=== PATIENT | male | born 1990 | race Hispanic/Latino ===

== ENCOUNTER 2017-08-05 13:55 | Observation (INO) | payer BC ==
[2017-08-05 13:55] VITALS: BMI 23.0
--- NOTE | 2017-08-05 14:08 | ED PDOC ---
Arrival/HPI - General Time Seen by Provider: 08/05/17 14:08 Historian: Patient - History of Present Illness Narrative History of Present Illness (Text): 08/05/17 14:08 27 y/o male, no significant pmh, nkda, c/o periumbilical pain with nausea and vomiting started this morning around 10am. Sudden onset, no flank pain, severity 7/10, periumbilical to the RLQ region, associated with nausea and couple episodes of vomiting, no testicular pain, no night sweat, no rash, no urinary symptoms, no other medical or psychological complaitns. Past Medical History - Provider Review Nursing Documentation Reviewed: Yes - Infectious Disease Hx of Infectious Diseases: None - Tetanus Immunization Tetanus Immunization: Unknown - Psychiatric Hx Substance Use: No Family/Social History - Physician Review Nursing Documentation Reviewed: Yes Family/Social History: Unknown Family HX Smoking Status: Never Smoked Hx Alcohol Use: Yes Hx Substance Use: No Allergies/Home Meds Allergies/Adverse Reactions: Allergies Penicillins Allergy (Verified 08/05/17 14:15) ANAPHYLAXIS Review of Systems - Review of Systems Constitutional: absent: Fatigue, Fevers Eyes: absent: Vision Changes ENT: absent: Hearing Changes Respiratory: absent: SOB, Cough Cardiovascular: absent: Chest Pain Gastrointestinal: Abdominal Pain, Nausea, Vomiting. absent: Diarrhea Skin: absent: Rash, Pruritis Neurological: absent: Headache, Dizziness Psychiatric: absent: Anxiety, Depression Physical Exam Vital Signs Reviewed: Yes Vital Signs Temp Pulse Resp BP Pulse Ox 08/05/17 16:48 98.4 F 71 18 134/84 100 08/05/17 14:16 98.2 F 66 18 137/86 99 Temperature: Afebrile Blood Pressure: Normal Pulse: Regular Respiratory Rate: Normal Appearance: Positive for: Well-Appearing, Non-Toxic, Comfortable Pain Distress: Moderate Mental Status: Positive for: Alert and Oriented X 3 - Systems Exam Head: Present: Atraumatic, Normocephalic Pupils: Present: PERRL Extroacular Muscles: Present: EOMI Conjunctiva: Present: Normal Mouth: Present: Moist Mucous Membranes Neck: Present: Normal Range of Motion Respiratory/Chest: Present: Clear to Auscultation, Good Air Exchange. No: Respiratory Distress, Accessory Muscle Use Cardiovascular: Present: Regular Rate and Rhythm, Normal S1, S2. No: Murmurs Abdomen: Present: Tenderness (+periumbilical tenderness). No: Distention, Peritoneal Signs, Rebound, Guarding Back: Present: Normal Inspection Upper Extremity: Present: Normal Inspection. No: Cyanosis, Edema Lower Extremity: Present: Normal Inspection. No: Edema Neurological: Present: GCS=15, CN II-XII Intact, Speech Normal Skin: Present: Warm, Dry, Normal Color. No: Rashes Psychiatric: Present: Alert, Oriented x 3, Normal Insight, Normal Concentration Medical Decision Making ED Course and Treatment: 08/05/17 14:28 -labs/ua -CT abdomen and pelvis -IVF/zofran/morphine 4mg IV -Observe and reassess 08/05/17 17:24 -CT abdomen and pelvis show Findings consistent with acute appendicitis. Splenomegaly findings discussed with emergency room DAYNA Hill at approximately 5: 10 p.m. with written down and read back verification. -Labs show no acute findings except wbc 13.9 -UA no UTI -Surgical attending DR. Ramirez and cardiovascular surgical tech luis daniel. -IV cipro and flagyl ordered 08/05/17 17:25 -I spoke to the cardiovascular surgical tech Dr. Murphy, agreed on the cipro and flagyl, will come to evaluate the patient. -I discussed with DR. Sloan and he agreed on the treatment and admission. 08/05/17 17:48 -Chest xray show no active disease -Fabric Normalizer DR. Jeffrey Gaona is here, will reach out to Dr. Crespo as the patient's family request him to be the surgeon and I am unable to get a call back from Dr. Crespo. 08/05/17 18:15 -Dr. Jeffrey Gaona, called and spoke to the surgical attending Dr. Corey which Dr. Crespo agreed to admit to his service. - Lab Interpretations Lab Results: 08/05/17 14:50 08/05/17 14:50 Lab Results 08/05/17 16:43: Urine Color Yellow, Urine Appearance Clear, Urine pH 7.5, Ur Specific [place] 1.010, Urine Protein Negative, Urine Glucose (UA) Negative, Urine Ketones 15 H, Urine Blood Negative, Urine Nitrate Negative, Urine Bilirubin Negative, Urine Urobilinogen 0.2, Ur Leukocyte Esterase Negative 08/05/17 14:50: WBC 13.9 H, RBC 5.64, Hgb 16.3, Hct 45.6, MCV 80.9, MCH 28.9, MCHC 35.7, RDW 12.4, Plt Count 208, MPV 11.3 H, Gran % 86.4 H, Lymph % (Auto) 8.9 L, [place] % (Auto) 4.4, Eos % (Auto) 0.2 L, Baso % (Auto) 0.1, Gran # 12.04 H , Lymph # (Auto) 1.2, [place] # (Auto) 0.6, Eos # (Auto) 0.0, Baso # (Auto) 0.01 08/05/17 14:50: Sodium 142, Potassium 4.3, Chloride 102, Carbon Dioxide 23, Anion Gap 21 H, BUN 13, Creatinine 0.9, Est GFR ( Amer) > 60, Est GFR ( Non-Af Amer) > 60, Random Glucose 102, Calcium 10.1, Magnesium 1.9, Total Bilirubin 0.8, AST 26, ALT 32, Alkaline Phosphatase 73, Total Protein 8.5 H, Albumin 5.1 H, Globulin 3.4, Albumin/Globulin Ratio 1.5, Lipase 54 I have reviewed the lab results: Yes - RAD Interpretation Radiology Orders: 08/05/17 14:23 ABD & PELVIS IV CONTRAST ONLY [CT] Stat 08/05/17 17:11 CHEST PORTABLE [RAD] Stat Chest xray: HISTORY: medical clearance COMPARISON: No prior. FINDINGS: LUNGS: No active pulmonary disease. PLEURA: No significant pleural effusion identified, no pneumothorax apparent. CARDIOVASCULAR: Normal. OSSEOUS STRUCTURES: No significant abnormalities. VISUALIZED UPPER ABDOMEN: Normal. OTHER FINDINGS: None. IMPRESSION: No active disease. CT abdomen and pelvis: PROCEDURE: CT abdomen pelvis HISTORY: Periumbilical pain/nausea/vomiting started today COMPARISON: None. TECHNIQUE: Contiguous axial images of the abdomen and pelvis performed following intravenous injection of approximately 96 cc Omnipaque 350 contrast material. Reformats generated. Radiation dose: Total exam DLP = 626.33 mGy-cm. This CT exam was performed using one or more of the following dose reduction techniques: Automated exposure control, adjustment of the mA and/or kV according to patient size, and/or use of iterative reconstruction technique. FINDINGS: LOWER THORAX: Unremarkable. LIVER: Unremarkable. No gross lesion or ductal dilatation. GALLBLADDER AND BILE DUCTS: Unremarkable. PANCREAS: Unremarkable. No mass. No ductal dilatation. SPLEEN: Spleen is enlarged measuring nearly 14 cm in AP dimension. ADRENALS: No adrenal lesions. KIDNEYS AND URETERS: Unremarkable. No stone or hydronephrosis. BLADDER: Grossly unremarkable. REPRODUCTIVE: Unremarkable. APPENDIX: The appendix is dilated measuring nearly 11 mm with wall thickening. Findings are consistent with acute appendicitis. BOWEL: Evaluation of the bowel is limited due to the lack of oral contrast Stomach is collapsed. Visualized loops of small bowel exhibit normal contour and caliber. No evidence of acute mechanical small bowel obstruction. . There is fecalized content within the distal small bowel suggesting stasis. Stool and air seen throughout the cecum PERITONEUM: Unremarkable. No fluid collection. No free air. Tiny fat containing umbilical hernia. LYMPH NODES: Unremarkable. No enlarged lymph nodes. VASCULATURE: Unremarkable. No aortic aneurysm. BONES: No fracture or destructive lesion. OTHER FINDINGS: None. IMPRESSION: Findings consistent with acute appendicitis Splenomegaly findings discussed with emergency room DAYNA Hill at approximately 5: 10 p.m. with written down and read back verification. Case Assistant: Radiologist - Medication Orders Current Medication Orders: Hydromorphone HCl (Dilaudid) 0.5 mg IVP Q3H PRN PRN Reason: Pain, severe (8-10) Ciprofloxacin (Cipro 400mg/200ml Dsw) 400 mg in 200 mls @ 133.3 mls/hr IVPB STAT STA PRN Reason: Protocol Stop: 08/05/17 18:53 Ciprofloxacin (Cipro 400mg/200ml Dsw) 400 mg in 200 mls @ 133.3 mls/hr IVPB Q12H AURELIO PRN Reason: Protocol Metronidazole (Flagyl) 500 mg in 100 mls @ 100 mls/hr IVPB Q8H AURELIO PRN Reason: Protocol Lactated Ringer's (Lactated Ringer's) 1,000 mls @ 115 mls/hr IV .Q8H42M [facility] Ondansetron HCl (Zofran Inj) 4 mg IVP Q6 PRN PRN Reason: Nausea/Vomiting Pantoprazole Sodium (Protonix Inj) 40 mg IVP DAILY AURELIO Discontinued Medications Famotidine (Pepcid) 20 mg IVP STAT STA Stop: 08/05/17 14:24 Last Admin: 08/05/17 14:36 Dose: 20 mg IVP Administration Document 08/05/17 14:36 OCS (Rec: 08/05/17 14:[address]) Charges for Administration # of IVP Administrations 1 Sodium Chloride (Sodium Chloride 0.9%) 1,000 mls @ 999 mls/hr IV .Q1H1M STA Stop: 08/05/17 15:23 Last Admin: 08/05/17 14:36 Dose: 999 mls/hr eMAR Start Stop Document 08/05/17 14:36 OCS (Rec: 08/05/17 14:36 OCS [id number]) Intravenous Solution Start Date 08/05/17 Start Time 14:36 End Date 08/05/17 End time 15:37 Total Infusion Time 61 Metronidazole (Flagyl) 500 mg in 100 mls @ 100 mls/hr IVPB STAT STA PRN Reason: Protocol Stop: 08/05/17 18:11 Last Admin: 08/05/17 18:00 Dose: 100 mls/hr eMAR Start Stop Document 08/05/17 18:00 EWO (Rec: 08/05/17 18:00 EWO [id number]) Intravenous Solution Start Date 08/05/17 Start Time 18:00 End Date 08/05/17 End time 19:00 Total Infusion Time 60 Morphine Sulfate (Morphine) 4 mg IVP STAT STA Stop: 08/05/17 14:24 Last Admin: 08/05/17 14:36 Dose: 4 mg MAR Pain Assessment Document 08/05/17 14:36 OCS (Rec: 08/05/17 14:36 [id number] Pain Reassessment Is this a pain reassessment? Yes Sleep Is patient sleeping during reassessment? No Presence of Pain Presence of Pain Yes Pain Scale Used Pain Scale Used Numeric Location Left, Right or Bilateral Left Pain Location Body Site Hip Description Description Constant Aggravating Factors ADL's IVP Administration Document 08/05/17 14:36 OCS (Rec: 08/05/17 14:36 OCS [id number]) Charges for Administration # of IVP Administrations 1 Morphine Sulfate (Morphine) 4 mg IVP STAT STA Stop: 08/05/17 16:52 Last Admin: 08/05/17 17:09 Dose: 4 mg MAR Pain Assessment Document 08/05/17 17:09 OCS (Rec: 08/05/17 17:09 OCS [id number]) Pain Reassessment Is this a pain reassessment? Yes Sleep Is patient sleeping during reassessment? No Presence of Pain Presence of Pain Yes Pain Scale Used Pain Scale Used Numeric Location Pain Location Body Site Abdomen Description Description Constant Pain Behavior Irritability Facial Grimacing IVP Administration Document 08/05/17 17:09 OCS (Rec: 08/05/17 17:09 OCS [id number]) Charges for Administration # of IVP Administrations 1 Ondansetron HCl (Zofran Inj) 4 mg IVP STAT STA Stop: 08/05/17 14:24 Last Admin: 08/05/17 14:36 Dose: 4 mg IVP Administration Document 08/05/17 14:36 OCS (Rec: 08/05/17 14:37 OCS [id number]) Charges for Administration # of IVP Administrations 1 - PA / [employer] / Resident Statement /DO has reviewed & agrees with the documentation as recorded. Disposition/Present on Arrival - Present on Arrival Any Indicators Present on Arrival: No History of DVT/PE: No History of Uncontrolled Diabetes: No Urinary Catheter: No History of Decub. Ulcer: No History Surgical Site Infection Following: None - Disposition Have Diagnosis and Disposition been Completed?: Yes Diagnosis: Appendicitis, Splenomegaly, Leukocytosis Disposition: HOSPITALIZED Disposition Time: 17:24 Patient Plan: Admission Patient Problems: Current Active Problems Problem Status Onset Appendicitis Acute Splenomegaly Acute Leukocytosis Acute Condition: STABLE
[2017-08-05] MEDS ORDERED: Sodium Chloride 0.9% 1,000 ML IV STA (14:23)
[2017-08-05] MEDS ORDERED: Morphine 4 mg/ml ISec IVP STA ×2 (14:23→16:51)
[2017-08-05 15:24] LABS: BASO # 0.01 K/mm3 (0.0-2.0); BASO % 0.1 % (0.0-3.0); EOS % 0.2 % (1.5-5.0); GRAN # 12.04 (1.4-6.5); GRAN % 86.4 % (50.0-68.0); HEMOGLOBIN 16.3 g/dL (14.0-18.0); LYMPH # 1.2 (1.2-3.4); LYMPH % 8.9 % (22.0-35.0); MEAN CELL VOLUME 80.9 fl (80.0-105.0); MEAN CORPUSCULAR HEMOGLOBIN 28.9 pg (25.0-35.0); MEAN CORPUSCULAR HGB CONC 35.7 g/dl (31.0-37.0); MEAN PLATELET VOLUME 11.3 fl (7.0-11.0); MONO # 0.6 (0.1-0.6); MONO % 4.4 % (1.0-6.0); RBC 5.64 10^6/uL (3.5-6.1); RED CELL DISTRIBUTION WIDTH 12.4 % (11.5-14.5); WHITE BLOOD COUNT 13.9 10^3/ul (4.5-11.0)
[2017-08-05 15:53] LABS: ALB/GLOB RATIO 1.5 (1.1-1.8); ALBUMIN 5.1 g/dL (3.0-4.8); ALT/SGPT 32 U/L (7-56); AST/SGOT 26 U/L (17-59); BLOOD UREA NITROGEN 13 mg/dL (7-21); CALCIUM 10.1 mg/dL (8.4-10.5); GFR AFRICAN-AMERICAN > 60; GFR NON-AFRICAN AMERICAN > 60; LIPASE 54 U/L (23-300)
[2017-08-05] MEDS ORDERED: Iohexol 350 MG/100 ML VIAL ONE (16:10)
[2017-08-05 17:05] LABS: PH,URINE 7.5 (4.7-8.0); URINE BILIRUBIN NEGATIVE (NEGATIVE); URINE BLOOD NEGATIVE (NEGATIVE); URINE GLUCOSE (UA) NEGATIVE (NEGATIVE); URINE LEUKOCYTE ESTERASE NEGATIVE Leu/uL (NEGATIVE); URINE PROTEIN NEGATIVE mg/dL (<30 mg/dL); URINE UROBILINOGEN 0.2 E.U./dL (<1 E.U./dL)
[2017-08-05] MEDS ORDERED: metroNIDAZOLE IV 500 mg/100 ml 500 MG/100 ML BAG IVPB STA (17:12)
--- NOTE | 2017-08-05 17:13 | CT ---
PROCEDURE: CT abdomen pelvis HISTORY: Periumbilical pain/nausea/vomiting started today COMPARISON: None. TECHNIQUE: Contiguous axial images of the abdomen and pelvis performed following intravenous injection of approximately 96 cc Omnipaque 350 contrast material. Reformats generated. Radiation dose: Total exam DLP = 626.33 mGy-cm. This CT exam was performed using one or more of the following dose reduction techniques: Automated exposure control, adjustment of the mA and/or kV according to patient size, and/or use of iterative reconstruction technique. FINDINGS: LOWER THORAX: Unremarkable. LIVER: Unremarkable. No gross lesion or ductal dilatation. GALLBLADDER AND BILE DUCTS: Unremarkable. PANCREAS: Unremarkable. No mass. No ductal dilatation. SPLEEN: Spleen is enlarged measuring nearly 14 cm in AP dimension. ADRENALS: No adrenal lesions. KIDNEYS AND URETERS: Unremarkable. No stone or hydronephrosis. BLADDER: Grossly unremarkable. REPRODUCTIVE: Unremarkable. APPENDIX: The appendix is dilated measuring nearly 11 mm with wall thickening. Findings are consistent with acute appendicitis. BOWEL: Evaluation of the bowel is limited due to the lack of oral contrast Stomach is collapsed. Visualized loops of small bowel exhibit normal contour and caliber. No evidence of acute mechanical small bowel obstruction. . There is fecalized content within the distal small bowel suggesting stasis. Stool and air seen throughout the cecum PERITONEUM: Unremarkable. No fluid collection. No free air. Tiny fat containing umbilical hernia. LYMPH NODES: Unremarkable. No enlarged lymph nodes. VASCULATURE: Unremarkable. No aortic aneurysm. BONES: No fracture or destructive lesion. OTHER FINDINGS: None. IMPRESSION: Findings consistent with acute appendicitis Splenomegaly findings discussed with emergency room DAYNA Hill at approximately 5:10 p.m. with written down and read back verification.
[2017-08-05 17:21] LABS: URINE APPEARANCE CLEAR (CLEAR); URINE COLOR YELLOW (YELLOW)
[2017-08-05] MEDS ORDERED: Ciprofloxacin 400mg/200ml D5W 400 MG/200 ML BAG IVPB STA (17:23)
--- NOTE | 2017-08-05 17:29 | CP.PCM.CON ---
Past Patient History - Infectious Disease Hx of Infectious Diseases: None - Tetanus Immunizations Tetanus Immunization: Unknown - Past Social History Smoking Status: Never Smoked - PSYCHIATRIC Hx Substance Use: No - SURGICAL HISTORY Hx Surgeries: No Meds Allergies/Adverse Reactions: Allergies Allergy/AdvReac Type Severity Reaction Status Date / Time Penicillins Allergy ANAPHYLAXIS Verified 08/05/17 14:15 - Medications Medications: Current Medications Metronidazole (Flagyl) 500 mg in 100 mls @ 100 mls/hr IVPB STAT STA PRN Reason: Protocol Stop: 08/05/17 18:11 Ciprofloxacin (Cipro 400mg/200ml Dsw) 400 mg in 200 mls @ 133.3 mls/hr IVPB STAT STA PRN Reason: Protocol Stop: 08/05/17 18:53 Results - Vital Signs Recent Vital Signs: Last Vital Signs Temp 98.4 F 08/05/17 16:48 Pulse 71 08/05/17 16:48 Resp 18 08/05/17 16:48 BP 134/84 08/05/17 16:48 Pulse Ox 100 08/05/17 16:48 - Labs Result Diagrams: 08/05/17 14:50 08/05/17 14:50 Labs: Laboratory Results - last 24 hr 08/05/17 08/05/17 08/05/17 14:50 14:50 16:43 WBC 13.9 H RBC 5.64 Hgb 16.3 Hct 45.6 MCV 80.9 MCH 28.9 MCHC 35.7 RDW 12.4 Plt Count 208 MPV 11.3 H Gran % 86.4 H Lymph % (Auto) 8.9 L [place] % (Auto) 4.4 Eos % (Auto) 0.2 L Baso % (Auto) 0.1 Gran # 12.04 H Lymph # (Auto) 1.2 [place] # (Auto) 0.6 Eos # (Auto) 0.0 Baso # (Auto) 0.01 Sodium 142 Potassium 4.3 Chloride 102 Carbon Dioxide 23 Anion Gap 21 H BUN 13 Creatinine 0.9 Est GFR ( Amer) > 60 Est GFR (Non-Af Amer) > 60 Random Glucose 102 Calcium 10.1 Magnesium 1.9 Total Bilirubin 0.8 AST 26 ALT 32 Alkaline Phosphatase 73 Total Protein 8.5 H Albumin 5.1 H Globulin 3.4 Albumin/Globulin Ratio 1.5 Lipase 54 Urine Color Yellow Urine Appearance Clear Urine pH 7.5 Ur Specific [place] 1.010 Urine Protein Negative Urine Glucose (UA) Negative Urine Ketones 15 H Urine Blood Negative Urine Nitrate Negative Urine Bilirubin Negative Urine Urobilinogen 0.2 Ur Leukocyte Esterase Negative
--- NOTE | 2017-08-05 17:34 | RAD ---
HISTORY: medical clearance COMPARISON: No prior. FINDINGS: LUNGS: No active pulmonary disease. PLEURA: No significant pleural effusion identified, no pneumothorax apparent. CARDIOVASCULAR: Normal. OSSEOUS STRUCTURES: No significant abnormalities. VISUALIZED UPPER ABDOMEN: Normal. OTHER FINDINGS: None. IMPRESSION: No active disease.
[2017-08-05] MEDS ORDERED: HYDROmorphone 0.5 mg/0.5 ml ISec IVP PRN ×2 (18:08→22:26)
--- NOTE | 2017-08-05 18:08 | CP.PCM.HP ---
History of Present Illness - History of Present Illness History of Present Illness: General Surgery H&P Note for Dr. Heaton cc: "lower abdominal pain, vomiting and diarrhea" 27 M with PMH that includes varicocele and pilonidal cyst [place] [facility] [place] of lower abdominal pain, nausea/vomiting and diarrhea. Patient was seen and evaluated in the ED. Patient states that his symptoms began last night around 22:00. Patient went out for a steak dinner in [place] then after dinner developed some abdominal discomfort and diarrhea. Patient had multiple bouts of non-bloody diarrhea. This morning when patient woke up the pain worsened and he developed nausea/vomiting as well. Patient had a few episodes of NBNB emesis. Patient reports to never having this pain in the past as well as sudden onset. He rates pain as severe. He describes the pain as constant and cramping that began in lower abdomen which moved to his umbilical region then eventually migrated to RLQ. Eating/drinking, movement, palpation aggravates his pain while nothing alleviates it. He denies recent illness or sick contacts. Admits to anorexia. Denies fever/chills, chest pain, SOB, palpitations, constipation, incontinence, urinary symptoms. PMH: varicocele, pilonidal cyst Meds: Denies Allergy: PCN PSH: I&D of pilonidal cyst FH: Cerebral aneurysms, DM, CAD Social: Smokes one cigar monthly, social EtOH, denies illicit drugs use, works as a teacher Present on Admission - Present on Admission Any Indicators Present on Admission: No History of DVT/PE: No History of Uncontrolled Diabetes: No Urinary Catheter: No Decubitus Ulcer Present: No History Surgical Site Infection Following: None Review of Systems - Review of Systems All systems: reviewed and no additional remarkable complaints except (as per HPI ) Past Patient History - Infectious Disease Hx of Infectious Diseases: None - Tetanus Immunizations Tetanus Immunization: Unknown - Past Social History Smoking Status: Never Smoked - PSYCHIATRIC Hx Substance Use: No - SURGICAL HISTORY Hx Surgeries: No Meds Allergies/Adverse Reactions: Allergies Allergy/AdvReac Type Severity Reaction Status Date / Time Penicillins Allergy ANAPHYLAXIS Verified 08/05/17 14:15 Physical Exam - Constitutional Appears: No Acute Distress - Head Exam Head Exam: ATRAUMATIC, NORMOCEPHALIC - Eye Exam Eye Exam: EOMI, Normal appearance Pupil Exam: PERRL - ENT Exam ENT Exam: Mucous Membranes Moist - Neck Exam Neck exam: Positive for: Normal Inspection - Respiratory Exam Respiratory Exam: Clear to Auscultation Bilateral, NORMAL BREATHING PATTERN - Cardiovascular Exam Cardiovascular Exam: RRR, +S1, +S2 - GI/Abdominal Exam GI & Abdominal Exam: Guarding (voluntary on palpation), Normal Bowel Sounds, Soft, Tenderness (Periumbilical, RLQ). absent: Distended, Firm, Hernia, Rigid Additional comments: (+) McBurney's point (+) Rovsing sign - Extremities Exam Extremities exam: Positive for: normal capillary refill, pedal pulses present. Negative for: calf tenderness - Back Exam Back exam: absent: CVA tenderness (L), CVA tenderness (R) - Neurological Exam Neurological exam: Alert, CN II-XII Intact, Oriented x3 - Psychiatric Exam Psychiatric exam: Normal Affect, Normal Mood - Skin Skin Exam: Dry, Intact, Normal Color, Warm Results - Vital Signs Recent Vital Signs: Last Vital Signs Temp 98.4 F 08/05/17 16:48 Pulse 71 08/05/17 16:48 Resp 18 08/05/17 16:48 BP 134/84 08/05/17 16:48 Pulse Ox 100 08/05/17 16:48 - Labs Result Diagrams: 08/05/17 14:50 08/05/17 14:50 Labs: Laboratory Results - last 24 hr 08/05/17 08/05/17 08/05/17 14:50 14:50 16:43 WBC 13.9 H RBC 5.64 Hgb 16.3 Hct 45.6 MCV 80.9 MCH 28.9 MCHC 35.7 RDW 12.4 Plt Count 208 MPV 11.3 H Gran % 86.4 H Lymph % (Auto) 8.9 L [place] % (Auto) 4.4 Eos % (Auto) 0.2 L Baso % (Auto) 0.1 Gran # 12.04 H Lymph # (Auto) 1.2 [place] # (Auto) 0.6 Eos # (Auto) 0.0 Baso # (Auto) 0.01 Sodium 142 Potassium 4.3 Chloride 102 Carbon Dioxide 23 Anion Gap 21 H BUN 13 Creatinine 0.9 Est GFR ( Amer) > 60 Est GFR (Non-Af Amer) > 60 Random Glucose 102 Calcium 10.1 Magnesium 1.9 Total Bilirubin 0.8 AST 26 ALT 32 Alkaline Phosphatase 73 Total Protein 8.5 H Albumin 5.1 H Globulin 3.4 Albumin/Globulin Ratio 1.5 Lipase 54 Urine Color Yellow Urine Appearance Clear Urine pH 7.5 Ur Specific [place] 1.010 Urine Protein Negative Urine Glucose (UA) Negative Urine Ketones 15 H Urine Blood Negative Urine Nitrate Negative Urine Bilirubin Negative Urine Urobilinogen 0.2 Ur Leukocyte Esterase Negative - Imaging and Cardiology CT scan - abdomen Status: Image reviewed by me, Report reviewed by me Additional comment: Impression: Acute appendicitis Assessment & Plan - Assessment and Plan (Free Text) Assessment: 27 M with PMH of varicocele and pilonidal cyst presents with Acute Appendicitis. CT abd/pelvis findings confirms diagnosis. (Blackman Score is 8; AIR score is 7) Plan: -NPO -IV fluids -IV antibiotics -Analgesics/Anti-emetics PRN -GI/DVT ppx -Activity as tolerated -Plan for laparoscopic appendectomy in OR -Discussed with Dr. Ashley Valdes PGY1 - Date & Time Date: 08/05/17 Time: 17:30
[2017-08-05] MEDS ORDERED: Lactated Ringer's 1,000 ML IV SCH ×4 (18:15→22:30)
[2017-08-05 18:38] LABS: PROTHROMBIN TIME 11.4 SECONDS (9.4-12.5)
[2017-08-05] MEDS ORDERED: Propofol 10 mg/ml Inj (20 ML) ONE (22:38)
[2017-08-05] MEDS ORDERED: Midazolam 2 MG/2 ML VIAL ONE (22:39)
[2017-08-05] MEDS ORDERED: Bupivacaine 0.5% Inj(30mL) ONE (22:50)
[2017-08-05] MEDS ORDERED: Rocuronium 10 mg/ml (5 ml) ONE (22:58)
[2017-08-05] MEDS ORDERED: Glycopyrrolate 0.2 mg/ml (2ml vial) ONE (22:59)
[2017-08-05] MEDS ORDERED: Neostigmine Methylsulfate 3mg/3ml Syringe IV ONE (22:59)
[2017-08-06] MEDS ORDERED: Albuterol HFA 90 mcg/actuation (8 g) ONE (00:17)
--- NOTE | 2017-08-06 00:24 | PCM.SURG1 ---
Surgeon's Initial Post Op Note - Surgeon's Notes Surgeon: Dr. Ramirez Opener: Keisha PGY1 Type of Anesthesia: General Endo Anesthesia Administered By: Dr. Higgins Pre-Operative Diagnosis: Acute Appendicitis Operative Findings: Acute Appendicitis Post-Operative Diagnosis: Acute Appendicitis Operation Performed: Laparoscopic Appendectomy Specimen/Specimens Removed: Appendix Estimated Blood Loss: EBL {In ML}: 10 Blood Products Given: N/A Drains Used: No Drains Post-Op Condition: Good Date of Surgery/Procedure: 08/06/17 Time of Surgery/Procedure: 00:24
[2017-08-06] MEDS: Lactated Ringer's 1,000 ML IV SCH ×2 (01:24→03:15)
[2017-08-06] MEDS: metroNIDAZOLE IV 500 mg/100 ml 500 MG/100 ML BAG IVPB SCH ×2 (01:27→10:14)
[2017-08-06 04:39] VITALS: O2SAT 97
[2017-08-06] MEDS ORDERED: Ciprofloxacin 400mg/200ml D5W 400 MG/200 ML BAG IVPB SCH (06:00)
[2017-08-06 07:15] LABS: BASO # 0.01 K/mm3 (0.0-2.0); BASO % 0.1 % (0.0-3.0); EOS % 0.1 % (1.5-5.0); GRAN # 9.57 (1.4-6.5); GRAN % 81.6 % (50.0-68.0); HEMOGLOBIN 13.1 g/dL (14.0-18.0); LYMPH # 1.1 (1.2-3.4); LYMPH % 9.5 % (22.0-35.0); MEAN CELL VOLUME 81.5 fl (80.0-105.0); MEAN CORPUSCULAR HEMOGLOBIN 27.8 pg (25.0-35.0); MEAN CORPUSCULAR HGB CONC 34.1 g/dl (31.0-37.0); MEAN PLATELET VOLUME 10.8 fl (7.0-11.0); MONO % 8.7 % (1.0-6.0); RBC 4.71 10^6/uL (3.5-6.1); RED CELL DISTRIBUTION WIDTH 12.5 % (11.5-14.5); WHITE BLOOD COUNT 11.7 10^3/ul (4.5-11.0)
[2017-08-06 07:46] VITALS: BP 119/61; PULSE 70; RESP 18; TEMP 98.2
[2017-08-06 07:57] LABS: ALB/GLOB RATIO 1.5 (1.1-1.8); ALBUMIN 3.9 g/dL (3.0-4.8); ALT/SGPT 29 U/L (7-56); AST/SGOT 17 U/L (17-59); BLOOD UREA NITROGEN 8 mg/dL (7-21); CALCIUM 8.6 mg/dL (8.4-10.5); GFR AFRICAN-AMERICAN > 60; GFR NON-AFRICAN AMERICAN > 60
--- NOTE | 2017-08-06 09:10 | OP ---
PROCEDURE DATE: 08/06/2017 PREOPERATIVE DIAGNOSIS: Acute appendicitis. POSTOPERATIVE DIAGNOSIS: Acute appendicitis. PROCEDURE PERFORMED: Laparoscopic appendectomy. SURGEON: Roderick Ramirez MD. AIRLINE MANAGER: Remy Valdes DO. ANESTHESIOLOGIST: Dr. Higgins. TYPE OF ANESTHESIA: General endotracheal anesthesia. ESTIMATED BLOOD LOSS: Minimal. SPECIMEN: Acutely inflamed appendix. DESCRIPTION OF PROCEDURE: The patient is a 27-year-old male with history of abdominal pain localizing to the right lower quadrant over the past 24 hours, who came into the emergency room and had workup revealing presence of leukocytosis and low-grade fever as well as CT scan showing presence of acute appendicitis. The patient was taken to the operating room for appendectomy. The patient was seen, noted to have right lower quadrant tenderness and was brought to the operating room for urgent appendectomy. The patient was brought to the operating room and placed on the operating table in supine position. The patient was connected to the EKG, blood pressure, and pulse oximetry monitors. The patient then underwent general endotracheal anesthesia and was prepped and draped in the usual sterile fashion. First, a standard time-out procedure took place when everybody in the room agreed as to the patient's identity, diagnosis, and procedure to be performed. Using two towel clips, the anterior abdominal wall was elevated and Veress needle was inserted through a small incision superior to the umbilicus and once pneumoperitoneum was obtained, a 12-mm trocar was inserted through that incision and careful evaluation of the abdominal cavity took place when the scope was placed through the port. Careful evaluation of abdominal cavity revealed the presence of inflamed appendix with slightly thickened wall and christian-appendiceal fluid. We then placed a second 12 mm trocar in the suprapubic position under direct visualization from inside the abdominal cavity and once this was in place, we proceeded with dissection. The appendix was grabbed carefully with a grasper and Harmonic scalpel was used in order to transect the appendiceal mesentery. Once the appendix was freed up all the way to its base and the appendiceal artery was cauterized with Harmonic scalpel, we then proceeded with Endo JENARO stapler and amputated the appendix at its base. The appendix was placed in the Endo Catch bag and removed through the periumbilical incision. The right lower quadrant was then copiously irrigated and there was excellent hemostasis noted. We then irrigated the pelvis and suctioned out all the irrigant fluid. There was no bleeding. All the purulent fluid from the abdominal cavity was washed out and suctioned out. The remaining portion of the abdominal cavity including the visible portion of the small bowel, liver, tip of the spleen and colon appeared to be within normal limits with no abnormal pathology noted. We then proceeded with release of the pneumoperitoneum. removal of the trocar after each one was checked for christian-trocar bleeding and then, I released the pneumoperitoneum. The trocar sites were closed using 0 Vicryl for the fascia, 3-0 Vicryl for the subcutaneous tissue and 4-0 Monocryl for skin. Sterile Dermabond dressing was applied to the wound. The patient tolerated the procedure well and there were no complications. The patient was awakened and transferred to the recovery room for further observation. Roderick Ramirez MD
--- NOTE | 2017-08-06 12:33 | CP.PCM.DIS ---
Provider - Provider Date of Admission: 08/05/17 18:15 Attending physician: Roderick Ramirez MD Primary care physician: General surgery -Dr. Ramirez Consults: None Time Spent in preparation of Discharge (in minutes): 35 Hospital Course - Lab Results Lab Results: Most Recent Lab Values WBC 11.7 10^3/ul (4.5-11.0) H 08/06/17 07:00 RBC 4.71 10^6/uL (3.5-6.1) 08/06/17 07:00 Hgb 13.1 g/dL (14.0-18.0) L D 08/06/17 07:00 Hct 38.4 % (42.0-52.0) L 08/06/17 07:00 MCV 81.5 fl (80.0-105.0) 08/06/17 07:00 MCH 27.8 pg (25.0-35.0) 08/06/17 07:00 MCHC 34.1 g/dl (31.0-37.0) 08/06/17 07:00 RDW 12.5 % (11.5-14.5) 08/06/17 07:00 Plt Count 169 10^3/uL (120.0-450.0) 08/06/17 07:00 MPV 10.8 fl (7.0-11.0) 08/06/17 07:00 Gran % 81.6 % (50.0-68.0) H 08/06/17 07:00 Lymph % (Auto) 9.5 % (22.0-35.0) L 08/06/17 07:00 [place] % (Auto) 8.7 % (1.0-6.0) H 08/06/17 07:00 Eos % (Auto) 0.1 % (1.5-5.0) L 08/06/17 07:00 Baso % (Auto) 0.1 % (0.0-3.0) 08/06/17 07:00 Gran # 9.57 (1.4-6.5) H 08/06/17 07:00 Lymph # (Auto) 1.1 (1.2-3.4) L 08/06/17 07:00 [place] # (Auto) 1.0 (0.1-0.6) H 08/06/17 07:00 Eos # (Auto) 0.0 (0.0-0.7) 08/06/17 07:00 Baso # (Auto) 0.01 K/mm3 (0.0-2.0) 08/06/17 07:00 PT 11.4 SECONDS (9.4-12.5) 08/05/17 14:50 INR 1.00 (0.93-1.08) 08/05/17 14:50 APTT 35.0 Seconds (25.1-36.5) 08/05/17 14:50 Sodium 139 mmol/L (132-148) 08/06/17 07:00 Potassium 3.8 mmol/L (3.6-5.0) 08/06/17 07:00 Chloride 104 mmol/L (98-107) 08/06/17 07:00 Carbon Dioxide 24 mmol/L (21-33) 08/06/17 07:00 Anion Gap 15 (10-20) 08/06/17 07:00 BUN 8 mg/dL (7-21) 08/06/17 07:00 Creatinine 0.8 mg/dl (0.8-1.5) 08/06/17 07:00 Est GFR ( Amer) > 60 08/06/17 07:00 Est GFR (Non-Af Amer) > 60 08/06/17 07:00 Random Glucose 118 mg/dL (70-110) H 08/06/17 07:00 Lactic Acid 0.9 mmol/L (0.7-2.1) 08/06/17 07:00 Calcium 8.6 mg/dL (8.4-10.5) 08/06/17 07:00 Phosphorus 3.0 mg/dL (2.5-4.5) 08/06/17 07:00 Magnesium 1.7 mg/dL (1.7-2.2) 08/06/17 07:00 Total Bilirubin 1.3 mg/dL (0.2-1.3) 08/06/17 07:00 AST 17 U/L (17-59) D 08/06/17 07:00 ALT 29 U/L (7-56) 08/06/17 07:00 Alkaline Phosphatase 47 U/L (38-126) 08/06/17 07:00 Total Protein 6.4 g/dL (5.8-8.3) 08/06/17 07:00 Albumin 3.9 g/dL (3.0-4.8) 08/06/17 07:00 Globulin 2.5 gm/dL 08/06/17 07:00 Albumin/Globulin Ratio 1.5 (1.1-1.8) 08/06/17 07:00 Lipase 54 U/L (23-300) 08/05/17 14:50 Urine Color Yellow (YELLOW) 08/05/17 16:43 Urine Appearance Clear (CLEAR) 08/05/17 16:43 Urine pH 7.5 (4.7-8.0) 08/05/17 16:43 Ur Specific [place] 1.010 (1.005-1.035) 08/05/17 16:43 Urine Protein Negative mg/dL (<30 mg/dL) 08/05/17 16:43 Urine Glucose (UA) Negative mg/dL (NEGATIVE) 08/05/17 16:43 Urine Ketones 15 mg/dL (NEGATIVE) H 08/05/17 16:43 Urine Blood Negative (NEGATIVE) 08/05/17 16:43 Urine Nitrate Negative (NEGATIVE) 08/05/17 16:43 Urine Bilirubin Negative (NEGATIVE) 08/05/17 16:43 Urine Urobilinogen 0.2 E.U./dL (<1 E.U./dL) 08/05/17 16:43 Ur Leukocyte Esterase Negative [place]/uL (NEGATIVE) 08/05/17 16:43 Blood Type O POSITIVE 08/05/17 19:30 Blood Type Confirm O POSITIVE 08/05/17 21:01 Antibody Screen Negative 08/05/17 19:30 BBK History Checked No verified bt 08/05/17 19:30 - Hospital Course Hospital Course: 27M w/PMH sig for varicocele & pilonidal cyst admitted for lower abdominal pain due to acute appendicitis. Pt started on IV Abx & taken to OR on hospital day 0 for laparoscopic appendectomy. Tolerated procedure well. Monitored overnight. Pt re-evaluated on POD#1. Tolerating diet, ambulating, pain well controlled. Pt stable and ready for discharge on PO Abx for mild leukocytosis. Pt given post op instructions and all questions answered. Diagnoses acute appendicitis S/p laparoscopic appendectomy varicocele pilonidal cyst - Date & Time of H&P Date of H&P: 08/05/17 Time of H&P: 18:08 Discharge Exam - Head Exam Head Exam: ATRAUMATIC, NORMAL INSPECTION, NORMOCEPHALIC - Eye Exam Eye Exam: EOMI, Normal appearance - ENT Exam ENT Exam: Mucous Membranes Moist, Normal Exam - Neck Exam Neck exam: Full Rom, Normal Inspection - Respiratory Exam Respiratory Exam: Clear to PA & Lateral, NORMAL BREATHING PATTERN, UNREMARKABLE - Cardiovascular Exam Cardiovascular Exam: REGULAR RHYTHM, +S1, +S2 - GI/Abdominal Exam GI & Abdominal Exam: Soft, Tenderness (mild, over surgical incision sites in suprapubic area and umbilical area, glue over incisions). absent: Distended, Firm, Guarding, Hernia, Hypoactive Bowel Sounds - Neurological Exam Neurological exam: Alert, CN II-XII Intact, Oriented x3 - Psychiatric Exam Psychiatric exam: Normal Affect, Normal Mood - Skin Skin Exam: Dry, Intact, Normal Color, Warm Discharge Plan - Discharge Medications Prescriptions: Ciprofloxacin HCl [Cipro] 500 mg PO BID #7 tablet - Follow Up Plan Condition: STABLE Disposition: HOME/ ROUTINE Instructions: Appendicitis, Adult (DC), Appendectomy, Laparoscopic Surgery (DC) Additional Instructions: Please call your primary care provider and follow up with them in 1-2 weeks after discharge. Please follow up with Dr. Ramirez in 1-2 weeks after discharge. You are being discharged on antibiotics, please take as directed. Please eat yogurt or take a probiotic to prevent antibiotic associated diarrhea. If you have pain, you may take the prescribed pain medication ( monitor for constipation, eat fiber or take an over the counter stool softener if you have constipation), or over the counter Motrin. No heavy lifiting for 4- 6 weeks, ok to return to gym activities in 2 weeks (no heavy lifting). Ok to shower normally, leave glue over incisions alone. Wash gently with soap and water. The glue will fall off on it's own over time. If you have fevers, chills or other problems, please return to hospital. Referrals: Roderick Ramirez MD [Staff Provider] -
== END 2017-08-06 14:04 | disposition home or self-care (01) ==
LOC: ED 13:55 → ERH 18:15 → 5RSO 20:17
PROVIDERS: ADMIT General Practice; ATTEND General Practice
DX: K35.80 Unspecified acute appendicitis (principal); I86.1 Scrotal varices; L05.91 Pilonidal cyst without abscess; Z88.0 Allergy status to penicillin; Z87.892 Personal history of anaphylaxis; R40.2412 Glasgow coma scale score 13-15, at arrival to emergency department; R16.1 Splenomegaly, not elsewhere classified
CPT/HCPCS: 36415; 44970; 71045; 74177; 80053; 81003; 83605; 83690; 83735; 84100; 85025; 85610; 85730; 86850; 86900; 88304; 96361; 96365; 96375; 96376; 99284; C9113; G0378; J0744; J1170; J2001; J2250; J2270; J2405; J2704; J2710; J3010; J7030; J7120; Q9967